=== PATIENT | male | born 1945 | race Two or more races ===

== ENCOUNTER 2018-06-20 12:27 | Outpatient (CLI) | payer OTHER | END 2018-06-24 15:26 | disposition home or self-care (01) | LOC: RAD 12:27 | DX: K59.09 Other constipation (principal) ==

== ENCOUNTER 2018-07-25 09:58 | Outpatient (CLI) | payer OTHER | END 2018-07-29 10:02 | disposition home or self-care (01) | LOC: RAD 09:58 | DX: K59.09 Other constipation (principal) ==